=== PATIENT | female | born 2000 | race Caucasian/White ===

== ENCOUNTER 2022-04-02 12:40 | Outpatient (CLI) | payer OTHER | END 2022-04-02 20:15 | disposition home or self-care (01) | LOC: MLB 12:40 → EDSTATUS 04-03 08:00 | PROVIDERS: ATTEND Surgery | DX: Z01.818 Encounter for other preprocedural examination (principal); Z20.822 Contact with and (suspected) exposure to COVID-19; J98.4 Other disorders of lung; L05.91 Pilonidal cyst without abscess | CPT/HCPCS: 71045 ==